=== PATIENT | male | born 1940 | race Caucasian/White ===

== ENCOUNTER → 2017-12-21 | Day surgery (SDC) | payer OTHER ==
[2017-12-20 09:10] LABS: BASOPHILS # (AUTO) 0.1 (0.0-0.1); BASOPHILS % 0.5 % (0.0-1.0); EOSINOPHILS # (AUTO) 0.1 (0.0-0.4); EOSINOPHILS % 1.4 % (0.0-6.0); HEMATOCRIT 42.6 % (38.2-49.6); HEMOGLOBIN 13.9 g/dL (14.0-18.0); LYMPHOCYTES # (AUTO) 2.4 (1.0-3.2); LYMPHOCYTES % 25.8 % (18.0-39.1); MEAN CORPUSCULAR HGB CONC 32.6 g/dL (31-35); MEAN CORPUSCULAR VOLUME 95.1 fL (81-99); MONOCYTES # (AUTO) 0.8 (0.2-0.8); MONOCYTES % 8.2 % (4.4-11.3); NEUTROPHILS % 63.6 % (38.7-80.0); PLATELET COUNT 228 x10e3/uL (140-360); RED BLOOD COUNT 4.48 x10e6/uL (4.3-5.7); RED CELL DISTRIBUTION WIDTH 16.7 % (11.7-14.4)
[~2017-12-21] MED LIST: ARICEPT5 MG PO; ASPIR 8181 MG PO; DOCUSATE SODIU100 MG PO; FINASTERIDE5 MG PO; FISH OIL 1,0001 EAC2 PO; FLAXSEED OIL1000 MG PO; FLOMAX0.4 MG PO; FLUOXETINE HCL20 MG PO; LEVOTHYROXINE25 MCG PO; LOVASTATIN20 MG PO; MEGESTROL ACETA40 MG PO; METFORMIN HCL1000 MG PO; METOPROLOL SUCC25 MG PO; NIACIN500 M2 PO; NICOTINE PATCH1 EAC1 TD; OMEPRAZOLE20 MG PO; PROPOFOL IV EMULSION 10 MG/ML 20 ML VIAL ONE; [UNRECOGNIZED DRUG - OTHER] PO; [UNRECOGNIZED DRUG - OTHER] PO
--- OUTSIDE RECORDS SUMMARY | 2017-12-21 07:45 | XMS REPORT ---
Author Author [facility] Address Unknown Phone Unavailable Care Team Providers Care Brewing Director Name Role Phone TIM MCMANUS Unavailable Unavailable Problems This patient has no known problems. Allergies, Adverse Reactions, Alerts This patient has no known allergies or adverse reactions. Medications This patient has no known medications. Results Test Description Test Time Test Comments Text Results Atomic Results Result Comments ABDOMEN-1VIEW (KUB) [place] [address] Patient Name: HERNANDEZ REINA MR #: [id number] : 1940 Age/Sex: 76/M Req #: [id number] Adm Physician: TIM MCMANUS MD Ordered by: TUNDE JIN MD Report #: [id number] Location: MED/SURG3 Room/Bed: [facility] _ Procedure: [id number] DX/ABDOMEN-1VIEW (KUB) Exam Date: 08/30/17 Exam Time: 2028 REPORT STATUS: Signed EXAM: Abdomen 1 Views INDICATION: Abdominal distention COMPARISON: Abdomen 08/27/2017. 08/25/2017. FINDINGS: New midline skin nathaniel in the pelvis. Distended air-filled small bowel loops and colon. No renal calculi. No abnormal soft tissue masses. Moderate degenerative changes in the lower lumbar spine and pelvis. IMPRESSION: 1. New postoperative changes with skin nathaniel in the midline pelvis. 2. Diffuse dilated small bowel loops and colon, likely ileus versus small bowel obstruction. Signed by: Dr. Tamica Hurt M.D. on 08/30/2017 8:39 PM Dictated By: TAMICA HURT MD 38 Transcribed By: TOMÁS on 08/30/172038 COPY TO: TUNDE JIN MD CHEST SINGLE (PORTABLE) [place] [address] Patient Name: HERNANDEZ REINA MR #: [id number] : 1940 Age/Sex: 76/M Req #: [id number] Adm Physician: TIM MCMANUS MD Ordered by: TIM MCMANUS MD Report #: [id number] Location: [facility] Room/Bed: [facility] Procedure: [id number] DX/CHEST SINGLE (PORTABLE) Exam Date: 06/07 Exam Time: 1110 REPORT STATUS: Signed PROCEDURE: A single AP view of the chest. COMPARISON: Portable chest 04/2018. INDICATIONS: SHORTNESS OF BREATH FINDINGS: Lines/ tubes: None. Lungs: Bilateral multifocal airspace opacifications. Pleura: Small bilateral pleural effusions. No pneumothorax. Heart and mediastinum: The heart and the mediastinum are unremarkable. Bones: No acute bony abnormality. Degenerative changes of the thoracic spine. IMPRESSION: Bilateral multifocal airspace opacifications consistent with pneumonia. Dictated by: Tim iWse M.D. on 08/30/2017 at 12:11 Electronically approved by: Tim Wise M.D. on 08/30/2017 at 12:11 Dictated By: TIM WISE MD 10 COPY TO: TIM MCMANUS MD CHEST SINGLE (PORTABLE) [place] [address] Patient Name: HERNANDEZ REINA MR #: [id number] : 1940 Age/Sex: 76/M Req #: [id number] Adm Physician: TIM MCMANUS MD Ordered by: FIOR FELIPE MD Report #: [id number] Location: MED/SURG3 Room/Bed: [facility] Procedure: [id number] DX/CHEST SINGLE (PORTABLE) Exam Date: 08/29/17 Exam Time: 0650 REPORT STATUS: Signed PROCEDURE: CHEST SINGLE (PORTABLE) COMPARISON: 08/27/2017. INDICATIONS: SHORTNESS OF BREATH. POST OBSTRUCTION SURGERY FINDINGS: Interval removal of nasogastric tube. Worsening airspace disease in the mid and lower lung zones. Small bilateral pleural effusions. Stable cardiomediastinal contour. No acute osseous abnormality. Advanced bilateral glenohumeral degenerative joint disease. CONCLUSION: Worsening multifocal opacities which may reflect pulmonary edema or multifocal pneumonia. Small bilateral pleural effusions. Dictated by: Fior Monterroso M.D. on 08/29/2017 at 7:17 Electronically approved by: Fior Monterroso M.D. on 08/29/2017 at 7:17 Dictated By: FIOR MONTERROSO MD 6 Transcribed By: MICK on 08/29/17716 COPY TO: FIOR FELIPE MD ABDOMEN-1VIEW (KUB) [place] [address] Patient Name: HERNANDEZ REINA MR #: [id number] : 1940 Age/Sex: 76/M Req #: [id number] Adm Physician: TIM MCMANUS MD Ordered by: FIOR FELIPE MD Report #: [id number] Location: [facility] Room/Bed: [place] [address] _ Procedure: [id number] DX/ABDOMEN-1VIEW (KUB) Exam Date: 08/27/17 Exam Time: 1400 REPORT STATUS: Signed EXAM: Abdomen 1 Views INDICATION: S check placement of NGT COMPARISON: KUB 02/2018 FINDINGS: Nasogastric tube has been advanced with the side port now in the stomach. Moderate amount of stool in the right colon. Multiple distended small bowel loops with thickened serosal mcmanus. No renal calculi. No abnormal soft tissue masses. Moderate degenerative changes in the lumbar spine and pelvis. IMPRESSION: Interval advancement of the NG tube with side-port now in the stomach. Signed by: Dr. Tamica Hurt M.D. on 08/27/2017 2: 14 PM Dictated By: TAMICA HURT MD 1414 COPY TO: FIOR FELIPE MD ABDOMEN-1VIEW (KUB) [place] [address] Patient Name: HERNANDEZ REINA MR #: [id number] : 1940 Age/Sex: 76/M Req #: [id number] Adm Physician: TIM MCMANUS MD Ordered by: FIOR FELIPE MD Report #: [id number] Location: [facility] Room/Bed: [place] [address] _ Procedure: [id number] DX/ABDOMEN-1VIEW (KUB) Exam Date: 08/27/17 Exam Time: 0850 REPORT STATUS: Signed EXAM: Abdomen 1 Views INDICATION: COMPARISON: Abdomen 08/25/2017. FINDINGS: NG tube tip is in the stomach. Side-port is at the GE junction. Mild amount of stool in the colon. Multiple distended small bowel loops with thickened serosal mcmanus. No renal calculi. No abnormal soft tissue masses. Moderate degenerative changes in the lower lumbar spine and pelvis. IMPRESSION: 1. NG tube in the stomach with side-port at the GE junction. 2. Diffuse small bowel dilatation consistent with ileus. Signed by: Dr. Tamica Hurt M.D. on 08/27/2017 10:15 AM Dictated By: TAMICA HURT MD 1015 Transcribed By: TOMÁS on 08/27/17 1015 COPY TO: FIOR FELIPE MD [facility] [place] [address] Patient Name: HERNANDEZ REINA MR #: [id number] : 1940 Age/Sex: 76/M Req #: [id number] [facility] Physician: TIM MCMANUS MD Ordered by: FIOR FELIPE MD Report #: [id number] Location: [facility] Room/Bed: [place] [address] Procedure: [id number] DX/CHEST SINGLE (PORTABLE) Exam Date: 08/27/17 Exam Time: 0850 REPORT STATUS: Signed EXAMINATION: CHEST SINGLE (PORTABLE) INDICATION: Check NG tube placement. COMPARISON: None FINDINGS: AP view TUBES and LINES: NG tube tip is in the stomach. LUNGS: Lungs are not well inflated. There are bibasilar atelectasis. Diffuse bilateral airspace opacities. PLEURA: Possible tiny bilateral pleural effusions. HEART AND MEDIASTINUM: The cardiomediastinal silhouette is unremarkable. There are atherosclerotic calcifications within the aorta. BONES AND SOFT TISSUES: No acute osseous lesion. Soft tissues are unremarkable. UPPER ABDOMEN: No free air under the diaphragm. IMPRESSION: 1. NG tube in the stomach. 2. Bilateral airspace opacities, likely multifocal pneumonia. Signed by: Dr. Tamica Hurt M.D. on 08/27/2017 9:01 AM Dictated By: TAMICA HURT MD 0 Transcribed By: TOMÁS on 08/27/17900 COPY TO: FIOR FELIPE MD ABDOMEN-1VIEW (KUB) [place] [address] Patient Name: HERNANDEZ REINA MR #: [id number] : 1940 Age/Sex: 76/M Req #: [id number] Adm Physician: TIM MCMANUS MD Ordered by: TIM MCMANUS MD Report #: [id number] Location: ICU Room/Bed: [place] [address] Procedure: [id number] DX/ABDOMEN-1VIEW (KUB) Exam Date: 08/25/17 Exam Time: 0620 REPORT STATUS: Signed EXAM: ABDOMEN- 1VIEW (KUB) DATE: 08/25/2017 6:43 AM Time stamp on exam: 6:12 AM INDICATION: Small bowel obstruction COMPARISON: None FINDINGS: LINES/TUBES: Partially visualized NG tube with tip overlying the expected location of the gastric antrum BOWEL PATTERN: Multiple distended small and large bowel loops noted in the upper and lower abdomen. SOFT TISSUES: Few phleboliths noted. Midline nathaniel along the infraumbilical line LUNG BASES: Not included BONES: Degenerative changes of the lumbar and sacral spine IMPRESSION: Bowel ileus present. Signed by: Dr. Reji Simpson M.D. on 08/25/2017 7:09 AM Dictated By: REJI DAVE MD 8 Transcribed By: TOMÁS on 08/25/17708 COPY TO: TIM MCMANUS MD ABDOMEN COMP INCL UPR or DECUB [place] [address] Patient Name: HERNANDEZ REINA MR #: [id number] : 1940 Age/Sex: 76/M Req #: [id number] Adm Physician: TIM MCMANUS MD Ordered by: FIOR FELIPE MD Report #: [id number] Location: MED/SURG2 Room/Bed: [facility] Procedure: [id number] DX/ABDOMEN COMP INCL UPR or DECUB Exam Date: 08/24/17 Exam Time: 1320 REPORT STATUS: Signed PROCEDURE: ABDOMEN COMP INCL UPR OR DECUB INDICATION : Small bowel obstruction. COMPARISON: Patients [facility], CT, CT ABDOMEN/PELVIS W, 08/23/2017, 11:38. Patients [facility], DX, ABDOMEN- 1VIEW (KUB), 08/23/2017, 17:13. FINDINGS: NG tube again observed, with distal tip projected over the left upper quadrant laterally. Along for technical differences, no significant interval change in multiple mildly to moderate dilated small bowel loops. Degenerative changes of the lumbar spine. Apparent double wall sign on the second film may be related to adjacent dilated small bowel loops. CONCLUSION: Continued dilatation of multiple small bowel loops. Iza Shabazz M.D. Dictated by: Iza Shabazz M.D. on 08/24/2017 at 14: 14 Electronically approved by: Iza Shabazz M.D. on 08/24/2017 at 14:14 Dictated By: JORDY SHABAZZ MD, MD 13 Transcribed By: MICK on 08/24 COPY TO: FIOR FELIPE MD ABDOMEN-1VIEW ([facility]) [place] [address] Patient Name: HERNANDEZ REINA MR #: [id number] : 1940 Age/Sex: 76/M Req #: [id number] Adm Physician: TIM MCMANUS MD Ordered by: PRANAV MARIE MD Report #: [id number] Location: [facility] Room/Bed: [place] [address] Procedure: [id number] DX/ABDOMEN-1VIEW (KUB) Exam Date: 08/23/17 Exam Time: 1710 REPORT STATUS: Signed PROCEDURE : X-RAY ABDOMEN - KUB COMPARISON: KUB 06/19/2015. CT abdomen and pelvis 08/23/2017. INDICATIONS: LINE PLACEMENT FINDINGS: NG tube is in the stomach. Multiple dilated tubular appearing small bowel loops. There are no masses or abnormal calcifications. There is no evidence of free air. No acute osseous abnormalities are present. CONCLUSION: NG tube in stomach. Small bowel obstruction is unchanged. Dictated by: Tamica Hurt M.D. on 08/23/2017 at 17:48 Electronically approved by: Tamica Hurt M.D. on 08/23/2017 at 17:48 Dictated By: TAMICA HURT MD 47 Transcribed By: MICK on 08/23/171747 COPY TO: PRANAV MARIE MD CT ABDOMEN/PELVIS W [place] [address] Patient Name: HERNANEDZ REINA MR #: [id number] : 1940 Age/Sex: 76/M Req #: [id number] Adm Physician: Ordered by: EUFEMIA IRELAND Report #: [id number] Location: ER Room/Bed: Procedure: [id number] CT/CT ABDOMEN/PELVIS W Exam Date: 08/23/17 Exam Time: 1140 REPORT STATUS: Signed PROCEDURE: CT ABDOMEN AND PELVIS WITH CONTRAST TECHNIQUE: The abdomen and pelvis were scanned utilizing a multidetector helical scanner from the diaphragm to the lesser trochanter after the IV administration of 100 cc of Isovue 370 and the oral administration of Gastrografin. Coronal and sagittal multiplanar reformations were obtained. Total DLP: 470.5 mGy-cm COMPARISON: CT abdomen pelvis 03/06/2015. INDICATIONS: ABDOMINAL PAIN FINDINGS : LOWER THORAX: Severe centrilobular emphysematous changes in the lung bases. Scarring/fibrosis in both lower lobes. Thinning of the left ventricular myocardium at the apex well subendocardial hypoenhancement, likely from prior infarct/ischemia. Moderate tricoronary artery calcifications. Mild pericardial effusion. HEPATOBILIARY: 1.0 cm and 0.4 cm hypodensity in segment 4a of liver (series 2 image 19). 0.4 cm hypodensity in segment 4A (series 2 image 20). Diffuse hepatic steatosis. No biliary ductal dilatation. Normal gallbladder. SPLEEN: No splenomegaly. PANCREAS: No focal masses or ductal dilatation. ADRENALS: No adrenal nodules. KIDNEYS/URETERS: No hydronephrosis, stones, or solid mass lesions. 0.2 cm stone in the interpolar region of the left kidney. PELVIC ORGANS/ BLADDER: Prostate measures 6.7 cm in transverse dimension.. PERITONEUM / RETROPERITONEUM: Trace free fluid in the pelvis. LYMPH NODES: No lymphadenopathy. VESSELS: Infrarenal abdominal aortic aneurysm measuring 4.4 x 4.1 cm with eccentric soft plaque. This previously measured 4.1 x 3.8 cm on 03/06/2015. Severe atherosclerotic plaques at the origins of the celiac axis, SMA, bilateral renal arteries, and the WINNIE. GI TRACT: Small bowel is diffusely distended with air the wall thickening especially in the right abdomen. There is fecalization identified in the distal small bowel loops in the deep pelvis (series 2 image 69). Colon is relatively decompressed. Sigmoid diverticulosis while evidence of diverticulitis. BONES AND SOFT TISSUES: Wedge-shaped compression deformities of T11 and T12 vertebral bodies. Significant wedge compression deformity of L3 vertebral body. Severe disc space narrowing at L5-S1. IMPRESSION: 1. Findings consistent with a small bowel obstruction with a point of transition in the deep pelvis. 2. Slight increase size of infrarenal abdominal aortic aneurysm measuring 4.4 cm in diameter. 3. Small amount of free fluid in the deep pelvis. 4. Prostate enlargement. 5. 0.2 cm nonobstructing left renal stone. 6. Wedge compression deformities of T11 and T12 vertebral bodies. Significant wedge compression deformity of L3 vertebral body. Correlate for focal back tenderness. Dictated by: Tamica Hurt M.D. on 10/2017 at 13:06 Electronically approved by: Tamica Hurt M.D. on 08/23/2017 at 13:06 Dictated By: TAMICA HURT MD 1306 Transcribed By: MICK on 08/23/17 3032 COPY TO: EUFEMIA IRELADN
== END | disposition home or self-care (01) ==
LOC: OR 07:43
PROVIDERS: ATTEND Internal Medicine Gastroenterology
DX: R13.10 Dysphagia, unspecified (principal); K29.70 Gastritis, unspecified, without bleeding; K44.9 Diaphragmatic hernia without obstruction or gangrene; R63.4 Abnormal weight loss; I10 Essential (primary) hypertension; E11.9 Type 2 diabetes mellitus without complications; R23.4 Changes in skin texture; J44.9 Chronic obstructive pulmonary disease, unspecified; R00.1 Bradycardia, unspecified; E03.9 Hypothyroidism, unspecified; I73.9 Peripheral vascular disease, unspecified; F03.90 Unspecified dementia, unspecified severity, without behavioral disturbance, psychotic disturbance, mood disturbance, and anxiety; F31.9 Bipolar disorder, unspecified; F41.9 Anxiety disorder, unspecified; Z01.810 Encounter for preprocedural cardiovascular examination; Z01.812 Encounter for preprocedural laboratory examination; Z87.891 Personal history of nicotine dependence
CPT/HCPCS: 36415; 43239; 43450; 85025; 88305; 88312; 93005

== ENCOUNTER 2018-04-27 12:21 | Observation (INO) | payer OTHER ==
[~2018-04-27] VITALS: Ht 175.3 cm; Wt 62.3 kg
[~2018-04-27 12:21] MED LIST changes: -PROPOFOL IV EMULSION 10 MG/ML 20 ML VIAL ONE
[2018-04-27 13:12] LABS: BASOPHILS % 0.3 % (0.0-1.0); EOSINOPHILS # (AUTO) 0.1 (0.0-0.4); EOSINOPHILS % 0.5 % (0.0-6.0); HEMATOCRIT 42.2 % (38.2-49.6); HEMOGLOBIN 13.9 g/dL (14.0-18.0); LYMPHOCYTES # (AUTO) 1.8 (1.0-3.2); LYMPHOCYTES % 17.2 % (18.0-39.1); MEAN CORPUSCULAR HEMOGLOBIN 32.3 pg (28-32); MEAN CORPUSCULAR HGB CONC 32.9 g/dL (31-35); MEAN CORPUSCULAR VOLUME 98.1 fL (81-99); MONOCYTES # (AUTO) 1.2 (0.2-0.8); MONOCYTES % 11.4 % (4.4-11.3); NEUTROPHILS # (AUTO) 7.5 (2.1-6.9); NEUTROPHILS % 70.1 % (38.7-80.0); PLATELET COUNT 238 x10e3/uL (140-360); RED CELL DISTRIBUTION WIDTH 14.4 % (11.7-14.4)
[2018-04-27 13:19] LABS: INR 1.1; PROTHROMBIN TIME 13.4 seconds (11.9-14.5)
[2018-04-27 13:20] LABS: PARTIAL THROMBOPLASTIN TIME 28.5 seconds (23.8-35.5)
[2018-04-27 13:24] LABS: ALANINE AMINOTRANSFERASE 12 IU/L (0-55); ALBUMIN 3.5 g/dL (3.5-5.0); ALBUMIN/GLOBULIN RATIO 0.9 (0.8-2.0); ALKALINE PHOSPHATASE 100 IU/L (40-150); ANION GAP 13.5 mmol/L (8-16); BLOOD UREA NITROGEN 11 mg/dL (7-26); BUN/CREATININE RATIO 15 (6-25); CALCIUM 9.5 mg/dL (8.4-10.2); CARBON DIOXIDE 27 mmol/L (22-29); CHLORIDE 100 mmol/L (98-107); CREATINE KINASE 23 IU/L (30-200); CREATININE, SERUM 0.75 mg/dL (0.72-1.25); EST GLOMERULAR FILTRATION RATE > 60 ML/MIN (60-); GLUCOSE 112 mg/dL (74-118); MAGNESIUM 1.9 MG/DL (1.3-2.1); POTASSIUM 4.5 mmol/L (3.5-5.1); SODIUM 136 mmol/L (136-145)
--- NOTE | 2018-04-27 13:58 | Diagnostic Imaging Report ---
Examination: CT head without contrast Clinical Indication: Seizures. Shakes. Weakness. Technique: Transaxial noncontrast images from the skull base through the vertex were obtained. Sagittal and coronal reformatted images were done. Dose modulation, iterative reconstruction, and/or weight based adjustment of the mA/kV was utilized to reduce the radiation dose to as low as reasonably achievable. Comparison: The images of prior head CT performed in 2010 are inaccessible at this time. Findings: Scalp: No abnormalities. Bones: Intact. No fractures. No blastic or lytic lesions. Brain sulci: Mild volume loss for patient's age. Ventricles: Ex vacuo dilatation. No hydrocephalus. . Extra-axial space: No abnormalities. Parenchyma: There are mild confluent areas of low-attenuation within subcortical and periventricular white matter, nonspecific, but could represent microvascular ischemic disease. There is a cortical-based area of encephalomalacia involving the left orbitofrontal gyrus from prior vascular insult. No masses, hemorrhage, or acute cortical based vascular insults. Suprasellar region: No abnormalities. Craniocervical junction: The foramen magnum is patent. No Chiari one malformation. Incidental findings: Atherosclerotic calcification of the cavernous and supraclinoid internal carotid arteries. Impression: 1. No acute intracranial finding. 2. Moderate chronic microvascular ischemic change. 3. Prior vascular insult of the left frontal lobe. Signed by: Dr. Aimee Perez M.D. on 04/27/2018 1:55 PM
--- NOTE | 2018-04-27 14:02 | Diagnostic Imaging Report ---
A single frontal view of the chest. HISTORY: Shakes all over COMPARISON: Single view chest August 27, 2017 DISCUSSION: Portable technique, limits sensitivity of the exam. Overlying monitoring leads. Tubes/Lines: None Lungs and pleura: Interval markedly improved aeration of the lungs, no residual airspace consolidation or pulmonary edema. No definite pleural effusion or pneumothorax is identified. Heart and mediastinum: The cardiac silhouette appears unremarkable. Tortuosity of the thoracic aorta. Bones: Appear unremarkable. IMPRESSION: 1. No acute radiographic abnormality. 2. Specifically, no evidence of pneumonia. Signed by: Dr. Tom Rocha D.O., M.M.M. on 04/27/2018 1:58 PM
[2018-04-27 14:30] LABS: COLOR,URINE YELLOW (YELLOW)
[2018-04-27 14:31] LABS: BILIRUBIN,URINE NEGATIVE (NEGATIVE); CLARITY,URINE SL CLOUDY (CLEAR); KETONES,URINE TRACE (NEGATIVE); LEUKOCYTE ESTERASE ,URINE NEGATIVE (NEGATIVE); NITRITE,URINE NEGATIVE (NEGATIVE); PROTEIN,URINE DIPSTICK TRACE (NEGATIVE); URINE UROBILINOGEN 0.2 mg/dL (0.2 - 1)
[2018-04-27 14:37] LABS: BACTERIA,URINE FEW /HPF; EPITHELIAL CELLS,URINE MODERATE /LPF
[2018-04-27 14:38] LABS: MUCUS,URINE MODERATE (RARE)
[2018-04-27] MEDS ORDERED: ASPIRIN 81 MG CHEW TAB PO ONE (15:15)
[2018-04-27] MEDS ORDERED: ONDANSETRON HCL INJ 2 MG/ML VIAL IV PRN (15:15)
[2018-04-27] MEDS: SODIUM CHLORIDE 0.9% 1000ML 1,000 ML IV SCH (17:00)
[2018-04-27 18:08] VITALS: BP 161/72
[2018-04-27 18:09] VITALS: BP 161/72
[2018-04-27 18:18] VITALS: BP 161/72
[2018-04-27 19:20] VITALS: BP 160/72
[2018-04-27 20:46] VITALS: BP 160/72
[2018-04-27 20:49] LABS: CREATINE KINASE MB 0.9 ng/mL (0-5.0)
[2018-04-27] MEDS: DONEPEZIL HCL 5 MG TAB PO SCH (20:53)
[2018-04-27] MEDS: SIMVASTATIN 20 MG TAB PO SCH (20:53)
[2018-04-28] VITALS (8 sets, daily range): BP systolic 112–166; BP diastolic 58–78
[2018-04-28] MEDS: SODIUM CHLORIDE 0.9% 1000ML 1,000 ML IV SCH (04:35)
[2018-04-28] MEDS ORDERED: LEVOTHYROXINE SODIUM 25 MCG TABLET PO SCH (06:00)
[2018-04-28 06:01] LABS: BASOPHILS % 0.3 % (0.0-1.0); EOSINOPHILS # (AUTO) 0.1 (0.0-0.4); EOSINOPHILS % 0.6 % (0.0-6.0); HEMATOCRIT 38.4 % (38.2-49.6); LYMPHOCYTES # (AUTO) 1.5 (1.0-3.2); LYMPHOCYTES % 13.9 % (18.0-39.1); MEAN CORPUSCULAR HEMOGLOBIN 32.5 pg (28-32); MEAN CORPUSCULAR HGB CONC 33.9 g/dL (31-35); MONOCYTES # (AUTO) 1.2 (0.2-0.8); NEUTROPHILS # (AUTO) 7.7 (2.1-6.9); NEUTROPHILS % 73.9 % (38.7-80.0); PLATELET COUNT 227 x10e3/uL (140-360); RED CELL DISTRIBUTION WIDTH 14.1 % (11.7-14.4)
[2018-04-28] MEDS: LEVOTHYROXINE SODIUM 50 MCG TAB PO SCH (06:13)
[2018-04-28 06:18] LABS: BLOOD UREA NITROGEN 7 mg/dL (7-26); BUN/CREATININE RATIO 10 (6-25); CARBON DIOXIDE 23 mmol/L (22-29); CHLORIDE 102 mmol/L (98-107); CREATININE, SERUM 0.67 mg/dL (0.72-1.25); EST GLOMERULAR FILTRATION RATE > 60 ML/MIN (60-); GLUCOSE 111 mg/dL (74-118); SODIUM 134 mmol/L (136-145)
--- NOTE | 2018-04-28 06:35 | Diagnostic Imaging Report ---
CHEST SINGLE (PORTABLE), 04/28/2018 7:00 AM Technique: CHEST SINGLE (PORTABLE) Comparison: 04/27/2018 Clinical history: Confusion Findings: See Impression Impression: Single portable AP view. Motion artifact. 1. Stable cardiomediastinal silhouette. Aortic calcifications. 2. Low lung volumes with mild bibasilar opacity, possibly atelectasis or aspiration. Attention on follow-up with improved inspiratory effort. 3. No effusion or pneumothorax. Signed by: Dr Ilsa Mcghee MD on 04/28/2018 6:32 AM
[2018-04-28 07:20] LABS: CREATINE KINASE MB 0.8 ng/mL (0-5.0)
[2018-04-28] MEDS: ASPIRIN 81 MG CHEW TAB PO SCH (08:45)
[2018-04-28] MEDS: MEGESTROL ACETATE 40 MG TAB PO SCH ×2 (08:45→17:07)
[2018-04-28] MEDS: DOCUSATE SODIUM 100 MG CAP PO SCH ×2 (08:45→17:07)
[2018-04-28] MEDS: PANTOPRAZOLE SOD 40 MG TABEC PO SCH (08:46)
[2018-04-28] MEDS: FINASTERIDE 5 MG TAB PO SCH (08:46)
[2018-04-28] MEDS: FLUOXETINE HCL 20 MG CAP PO SCH (08:47)
[2018-04-28] MEDS: NIFEDIPINE CR 30 MG TAB PO SCH (08:48)
[2018-04-28] MEDS ORDERED: NICOTINE 21 MG/EA PATCH TOP SCH (09:00)
[2018-04-28] MEDS ORDERED: NON-FORMULARY MEDICATION (Lovastatin 20 MG) PO SCH (09:00)
[2018-04-28] MEDS ORDERED: METOPROLOL SUCCINATE 25 MG TAB XL PO SCH (09:00)
[2018-04-28] MEDS ORDERED: NICOTINE 14 MG/EA PATCH TOP SCH (09:00)
--- NOTE | 2018-04-28 11:53 | Consultation ---
DATE OF CONSULTATION: REASON FOR CONSULTATION: Bradycardia. HISTORY OF PRESENT ILLNESS: Mr. Hair is a 77-year-old gentleman with a past medical history as listed below. Apparently, was brought in because he was shaking all over. The patient is not good historian. Most of the history is obtained from his . He states he was shaking and so she decided to bring him to the hospital shaking for several hours. Denies having any seizure activity or loss of consciousness. There is no chest pain, shortness of breath or palpitations. Patient reportedly is intermittently confused. His heart rate was on the lower side so I was consulted. There is no history of any dizziness. REVIEW OF SYSTEMS: Not accurately obtainable from the patient. The patient denies any symptoms. ALLERGIES: CODEINE. MEDICATIONS: See list. PAST MEDICAL HISTORY: History of dementia, history of diabetes mellitus, history of hyperlipidemia, history of depression, history of skin cancer, history of PAD, history of abdominal aortic aneurysm. PAST SURGICAL HISTORY: History of colon resection, history of cataract surgery, history of inguinal hernia surgery, history of wrist surgery. SOCIAL HISTORY: Used to smoke in the past up to 2 packs a day. Apparently, quit in August. Drinks alcohol occasionally. 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 PHYSICAL EXAMINATION GENERAL: Moderately built and nourished gentleman who is awake and not in any obvious distress. VITALS: Heart rate is 81, blood pressure 149/67, respiratory rate 18, temperature 98.4. HEENT: Atraumatic. NECK: No JVD, bruit, thyromegaly, or lymphadenopathy. CARDIOVASCULAR: First and 2nd heart sounds heard. No murmurs, rubs or gallops appreciated. CHEST: Decreased air entry at the bases. No adventitious sounds appreciated. ABDOMEN: Soft and nontender. EXTREMITIES: No edema. LABS: Sodium is 134, potassium 4, chloride 102, bicarb 23, BUN is 7, creatinine 0.6, glucose 111. Hemoglobin is 13, hematocrit 38.4 and platelets are 227,000. White count is 10.4. EKG shows sinus bradycardia at 47 beats per minute, left axis deviation, right bundle branch block, secondary ST-T changes. IMPRESSION 1. Bradycardia. 2. Jerky movements. 3. History of dementia. 4. History of hyperlipidemia. 5. History of depression. PLAN 1. The patient's heart rate was on the lower side. Currently, the patient's heart rate is better. 2. Avoid any AV blocking agent. 3. Some of the anti-dementia medications can cause some bradycardia. 4. Get echocardiogram to assess LV function and valvular function. 5. Check thyroid function tests. 6. Further cardiac workup depending on clinical course. I have discussed my impression and plan of management with the family. As always, I appreciate and thank you very much for this referral. Job#: [id number] JENNY
[2018-04-28 13:40] LABS: FOLATE 17.8 ng/mL (7.0-15.4)
--- NOTE | 2018-04-28 14:04 | History and Physical ---
The patient is in observation. PCP: Dr. Diogo Orozco CHIEF COMPLAINT: Low heart rate with increasing confusion. HISTORY: A 77-year-old male with dementia, progressively worse. He also has baseline tremor. He came in because of heart rate in the 40s to 50s. Also, having increasing tremor. Currently, he is able to feed himself. He is able to follow commands. He does not have any complaint at this time. The patient is otherwise stable. Since his admission, the beta jacque of metoprolol has been on hold, and the patient's heart rate is in the 60s to 80s. The patient is otherwise stable. Baseline dementia. PAST MEDICAL HISTORY: History of small-bowel obstruction, status post exploratory laparotomy and repair of small bowel perforation and small bowel resection done in August 2017 associated with abdominal wound dehiscence. Wound healing well now. Chronic obstructive pulmonary disease due to smoking, history of recurrent pneumonia, hypertension, history of inguinal hernia repairs. SOCIAL HISTORY: The patient is a smoker. He lives with his . ALLERGIES: CODEINE, HYDRALAZINE, LISINOPRIL, LOSARTAN, AND MINOCYCLINE. HOME MEDICATIONS: List is reviewed. REVIEW OF SYSTEMS: Currently unremarkable. Back to baseline. PHYSICAL EXAMINATION VITAL SIGNS: Temperature is 98, blood pressure 133/68, pulse rate 63, respirations 18. On admission, the patient's pulse rate was 49. GENERAL: The patient is not in acute distress. HEENT: Normocephalic, atraumatic and anicteric. NECK: Supple grossly. PULMONARY: Diminished breath sounds without any wheezing. CARDIOVASCULAR: S1 and S2. Regular rate and rhythm. ABDOMEN: Soft and no distention. EXTREMITIES: No gross cyanosis or edema. NEUROLOGIC: No gross focal deficit. Patient has a benign tremor. LABORATORY: Otherwise unremarkable. IMPRESSION 1. Worsening of benign tremor. 2. Bradycardia secondary to metoprolol that was discontinued. 3. Progressive dementia. 4. Stable chronic obstructive pulmonary disease. PLAN: Check thyroid function test. Discontinue the metoprolol 25 mg twice a day. Continue with other medications. Add on nifedipine-XL 30 mg daily. Will monitor the patient closely. Because of social issue with respect to living at home with his spouse and worsening status, will consult home health for discharge planning. Job#: [id number] SD
[2018-04-28] MEDS: DONEPEZIL HCL 5 MG TAB PO SCH (21:17)
[2018-04-28] MEDS: SIMVASTATIN 20 MG TAB PO SCH (21:17)
[2018-04-29 00:34] VITALS: BP 111/56
[2018-04-29] MEDS: LEVOTHYROXINE SODIUM 50 MCG TAB PO SCH (05:20)
[2018-04-29 05:30] VITALS: BP 122/56
[2018-04-29 06:02] LABS: BASOPHILS % 0.2 % (0.0-1.0); EOSINOPHILS % 0.3 % (0.0-6.0); HEMOGLOBIN 13.3 g/dL (14.0-18.0); LYMPHOCYTES # (AUTO) 1.8 (1.0-3.2); LYMPHOCYTES % 14.5 % (18.0-39.1); MEAN CORPUSCULAR HEMOGLOBIN 32.5 pg (28-32); MEAN CORPUSCULAR HGB CONC 34.1 g/dL (31-35); MEAN CORPUSCULAR VOLUME 95.4 fL (81-99); MONOCYTES # (AUTO) 1.4 (0.2-0.8); MONOCYTES % 11.3 % (4.4-11.3); NEUTROPHILS # (AUTO) 9.2 (2.1-6.9); NEUTROPHILS % 73.2 % (38.7-80.0); PLATELET COUNT 224 x10e3/uL (140-360); RED BLOOD COUNT 4.09 x10e6/uL (4.3-5.7); RED CELL DISTRIBUTION WIDTH 14.1 % (11.7-14.4)
[2018-04-29 07:23] LABS: ANION GAP 12.6 mmol/L (8-16); BLOOD UREA NITROGEN 8 mg/dL (7-26); BUN/CREATININE RATIO 12 (6-25); CALCIUM 9.2 mg/dL (8.4-10.2); CARBON DIOXIDE 24 mmol/L (22-29); CHLORIDE 99 mmol/L (98-107); CREATININE, SERUM 0.68 mg/dL (0.72-1.25); EST GLOMERULAR FILTRATION RATE > 60 ML/MIN (60-); GLUCOSE 111 mg/dL (74-118); POTASSIUM 3.6 mmol/L (3.5-5.1); SODIUM 132 mmol/L (136-145)
[2018-04-29 08:00] VITALS: BP 127/58
[2018-04-29 08:32] VITALS: BP 127/58
[2018-04-29] MEDS: NIFEDIPINE CR 30 MG TAB PO SCH (09:07)
[2018-04-29] MEDS: PANTOPRAZOLE SOD 40 MG TABEC PO SCH (09:07)
[2018-04-29] MEDS: DOCUSATE SODIUM 100 MG CAP PO SCH (09:07)
[2018-04-29] MEDS: FLUOXETINE HCL 20 MG CAP PO SCH (09:07)
[2018-04-29] MEDS: FINASTERIDE 5 MG TAB PO SCH (09:07)
[2018-04-29] MEDS: MEGESTROL ACETATE 40 MG TAB PO SCH (09:07)
[2018-04-29] MEDS: ASPIRIN 81 MG CHEW TAB PO SCH (09:07)
[2018-04-29] MEDS ORDERED: CLINDAMYCIN HCL 150 MG CAP PO ONE (09:45)
--- NOTE | 2018-04-29 11:36 | Discharge Summary ---
PCP: Dr. Diogo Orozco Patient placed in observation. CONSULTANTS: Dr. Liam Zaman FINAL DIAGNOSES 1. Worsening Alzheimer dementia. 2. Bradycardia secondary to beta jacque. 3. Hypertensive urgency. 4. Possible aspiration pneumonia. DISCHARGE MEDICATIONS 1. Clindamycin 300 mg 3 times a day for 7 days. 2. Nifedipine XL 30 mg daily. 3. Discontinue metoprolol succinate. SUMMARY: A 77-year-old male with worsening heart rate in the 40s and 50s because he was taking metoprolol succinate. Those medications have been stopped. His heart rate is in the 60s and 70s now. He does have worsening dementia per spouse, and she is having difficulty taking care of the patient at home and she needs assistance. The patient is stable. X-ray showed possible early aspiration due to the patient's overall mental status. The patient is stable. He does have agitation while he is in the hospital most likely due to his dementia and not familiar environment. The patient is otherwise stable, however. Discussed with the patient's spouse and his son at the bedside. Discussed at length. They are agreeable that the patient will need palliative care at home and I agree as well. The patient will be evaluated by Hospice on Monday. In the meantime, the patient will go home today to continue with his home treatment. Job#: [id number] JENNY
[2018-04-29 11:37] VITALS: BP 119/60
[2018-04-29] MEDS ORDERED: CLINDAMYCIN HCL 150 MG CAP PO SCH (14:00)
== END 2018-04-29 13:00 | disposition home health service (06) ==
LOC: ER 12:21 → ERHOLD 15:24 → MED/SURG 17:38
PROVIDERS: ADMIT Internal Medicine; ATTEND Internal Medicine
DX: R00.1 Bradycardia, unspecified (principal); T44.7X5A Adverse effect of beta-adrenoreceptor antagonists, initial encounter; G30.1 Alzheimer's disease with late onset; F02.81 Dementia in other diseases classified elsewhere, unspecified severity, with behavioral disturbance; R41.82 Altered mental status, unspecified; J44.9 Chronic obstructive pulmonary disease, unspecified; E78.5 Hyperlipidemia, unspecified; F32.9 Major depressive disorder, single episode, unspecified; Z87.891 Personal history of nicotine dependence; E03.9 Hypothyroidism, unspecified; I16.0 Hypertensive urgency; F03.91 Unspecified dementia, unspecified severity, with behavioral disturbance
CPT/HCPCS: 36415 ×3; 70450; 71045 ×2; 80048 ×2; 80053; 81001; 82550 ×2; 82553 ×2; 82607; 82746; 83735; 84443; 84484 ×2; 85025 ×3; 85610; 85730; 93005; 93306; 96360; 97116; 97162; 99284; G0378 ×3; J7030; S0164 ×2